=== PATIENT | female | born 1990 | race Caucasian/White ===

== ENCOUNTER 2017-03-25 20:33 | Observation (INO) | payer OTHER ==
[2017-03-25 21:02] VITALS: BP 111/63; PULSE 92
[2017-03-25 21:19] LABS: Amphetamine,Urine NEG. (NEGATIVE); Barbiturate,Urine NEG. (NEGATIVE); Benzodiazepine,Urine NEG. (NEGATIVE); Cocaine,Urine NEG. (NEGATIVE); Methadone,Urine NEG. (NEGATIVE); Opiate,Urine NEG. (NEGATIVE); PCP,Urine NEG. (NEGATIVE); THC,Urine NEG. (NEGATIVE)
[2017-03-25 21:48] LABS: Appearance SLIGHTLY CLOUDY (CLEAR); Specific Gravity 1.015 (1.005-1.025)
[2017-03-25 21:49] LABS: Bacteria FEW /HPF (NEGATIVE); Bilirubin NEGATIVE (NEGATIVE); Blood NEGATIVE Ery/ul (0-5); Epithelial Cells MANY /HPF (FEW); Glucose NEGATIVE (NEGATIVE); Ketones NEGATIVE (NEGATIVE); Leukocyte Esterase 1+ (NEGATIVE); Nitrite NEGATIVE (NEGATIVE); Protein,Urine Dip NEGATIVE (Negative); Urobilinogen NORMAL mg/dL (0-1)
[2017-03-25] MEDS ORDERED: TYLENOL EXTRA STRENGTH 500 MG PO PRN (22:00)
[2017-03-25] MEDS ORDERED: TYLENOL EXTRA STRENGTH 500 MG ONE (22:02)
== END 2017-03-26 00:02 | disposition home or self-care (01) ==
LOC: OB 20:33
PROVIDERS: ADMIT Family Medicine; ATTEND Family Medicine
DX: Z34.83 Encounter for supervision of other normal pregnancy, third trimester (principal)
CPT/HCPCS: 80307; 81000; G0378; A9270-GY

== ENCOUNTER 2017-04-01 17:38 | Emergency (ER) | payer OTHER ==
[2017-04-01] MEDS ORDERED: Zithromax 250 MG TABLET PO ONE (18:52)
[2017-04-01] MEDS ORDERED: Lactated Ringers 1,000 ML IV ONE ×2 (18:52→20:00)
[2017-04-01] MEDS ORDERED: TYLENOL 325 MG PO ONE (18:54)
--- NOTE | 2017-04-01 19:02 | ERPHSYRPT ---
- History of Present Illness Source: patient Timing/Duration: today Severity: moderate Hx Tetanus, Diphtheria Vaccination/Date Given: No Hx Influenza Vaccination/Date Given: No Hx Pneumococcal Vaccination/Date Given: No <HERMELINDA STEVENSON - Last Filed: 04/01/17 19:06> <DEBORAH BAUTISTA - Last Filed: 04/01/17 20:55> - History of Present Illness Time Seen by Provider: 04/01/17 18:47 Physician History: CC: earache hx: 26 y/o patient of Dr Deleon is 39 weeks . She has left earache, now right earache. Low grade fever. Myalgias. Cough. Congestion. Breathing fine. Scheduled for repeat next week. She had CTX last week but none today. No ROM. No vaginal bleeding. Normal urination.Vomiting all day. (HERMELINDA STEVENSON) Allergies/Adverse Reactions: No Known Drug Allergies Allergy (Verified 04/01/17 19:16) Home Medications: Vits W-Ca,Fe,FA(<1Mg) [] 1 each PO DAILY 04/01/17 [History] - Review of Systems Constitutional: Fever, Fatigue, Malaise Eyes: No Symptoms Ears, Nose, & Throat: Ear Pain, No Ear Discharge Respiratory: Cough Abdominal/Gastrointestinal: Nausea, Vomiting, No Abdominal Pain, No Diarrhea Genitourinary Symptoms: , No Dysuria, No Vaginal Bleeding Musculoskeletal: Myalgias, No Back Pain Skin: No Rash Neurological: Headache All Other Systems: Reviewed and Negative <HERMELINDA STEVENSON - Last Filed: 04/01/17 19:06> - Past Medical History Pertinent Past Medical History: Yes Psycho-Social History: Depression - Past Surgical History Past Surgical History: Yes - Social History Smoking Status: Never smoker Exposure to second hand smoke: No Drug Use: none Patient Lives Alone: No <HERMELINDA STEVENSON - Last Filed: 04/01/17 19:06> - Physical Exam General Appearance: alert, obese Eye Exam: PERRL/EOMI Ears, Nose, Throat Exam: normal ENT inspection, dry mucous membranes Neck Exam: normal inspection, non-tender, supple Respiratory Exam: normal breath sounds, other (+ cough) Cardiovascular Exam: regular rate/rhythm, edema (1+ bilateral) Gastrointestinal/Abdomen Exam: soft, No tenderness, No distention Extremity Exam: normal range of motion, No calf tenderness Neurologic Exam: alert, oriented x 3, cooperative, sensation nml, No motor deficits Skin Exam: warm, dry, No rash <HERMELINDA STEVENSON - Last Filed: 04/01/17 19:06> - Nursing Vital Signs Nursing Vital Signs: Initial Vital Signs Pulse Rate 78 04/01/17 19:06 Respiratory Rate 20 04/01/17 19:06 Blood Pressure 147/87 04/01/17 19:06 O2 Sat by Pulse Oximetry 97 04/01/17 19:06 Pain Scale Pain Intensity 10 - Course Nursing assessment & vital signs reviewed: Yes <HERMELINDA STEVENSON - Last Filed: 04/01/17 19:06> Ordered Tests: Active Orders 24 hr Category Date Time Status Clean Catch Urine Specimen STAT Care 04/01/17 18:52 Active Heart Tones-ED STAT Care 04/01/17 18:52 Active Gown/Disrobe Pt STAT Care 04/01/17 18:52 Active IV Insertion STAT Care 04/01/17 18:52 Active CBC W DIFF Stat Lab 04/01/17 20:09 Completed CMP Stat Lab 04/01/17 20:09 Received CULTURE,URINE Stat Lab 04/01/17 19:08 Received UA W/ MICROSCOPIC Stat Lab 04/01/17 19:08 Completed Medication Summary Discontinued Medications Generic Name Dose Route Start Last Admin Trade Name Arianna PRN Reason Stop Dose Admin Acetaminophen 650 mg 04/01/17 18:54 04/01/17 19:28 Tylenol 325 Mg PO 04/01/17 18:55 650 mg STAT ONE Administration Acetaminophen Confirm 04/01/17 19:26 Tylenol 325 Mg Administered 04/01/17 19:27 Dose 650 mg .ROUTE .STK-MED ONE Azithromycin 500 mg 04/01/17 18:52 04/01/17 19:28 Zithromax 250 Mg Tablet PO 04/01/17 18:53 500 mg STAT ONE Administration Azithromycin Confirm 04/01/17 19:26 Zithromax 250 Mg Tablet Administered 04/01/17 19:27 Dose 500 mg .ROUTE .STK-MED ONE Lactated Ringer's 1,000 mls @ 999 mls/hr 04/01/17 18:52 04/01/17 20:02 Lactated Ringers IV 04/01/17 19:52 999 mls/hr .Q1H1M ONE Administration Lactated Ringer's Confirm 04/01/17 20:00 Lactated Ringers Administered 04/01/17 20:01 Dose 1,000 mls @ ud IV .STK-MED ONE Lab/Rad Data: Laboratory Result Diagrams 04/01/17 20:09 Laboratory Results 04/01/17 04/01/17 04/01/17 Range/Units 20:09 19:08 19:08 WBC 11.0 H (4.0-10.5) K/mm3 RBC 3.94 L (4.1-5.4) M/mm3 Hgb 10.4 L (12.0-16.0) gm/dl Hct 33.3 L (35-47) % MCV 84.5 (78-100) fl MCH 26.3 (26-32) pg MCHC 31.2 L (32-36) g/dl RDW 14.3 H (11.5-14.0) % Plt Count 339 (150-450) K/mm3 MPV 10.6 H (6-9.5) fl Gran % 78.1 H (36.0-66.0) % Lymphocytes % 15.3 L (24.0-44.0) % Monocytes % 5.6 (0.0-12.0) % Eosinophils % 0.9 (0.00-5.0) % Basophils % 0.1 (0.0-0.4) % Basophils # 0.01 (0-0.4) Ur Collection Type CLEAN CATCH Urine Color YELLOW (YELLOW) Urine Appearance HAZY (CLEAR) Urine pH 6.0 (5-6) Ur Specific [place] 1.015 (1.005-1.025) Urine Protein TRACE (Negative) Urine Ketones NEGATIVE (NEGATIVE) Urine Blood TRACE NON-HEM (0-5) Jean Claude/ul Urine Nitrite NEGATIVE (NEGATIVE) Urine Bilirubin NEGATIVE (NEGATIVE) Urine Urobilinogen NORMAL (0-1) mg/dL Ur Leukocyte Esterase TRACE (NEGATIVE) Urine Microscopic RBC 5-10 (0-2) /HPF Urine Microscopic WBC 0-2 (0-5) /HPF Ur Epithelial Cells MODERATE (FEW) /HPF Urine Bacteria FEW (NEGATIVE) /HPF Urine Mucus MANY (NEGATIVE) /HPF Urine Culture Reflexed YES (NO) Urine Glucose NEGATIVE (NEGATIVE) mg/dL Influenza Type A Ag NEGATIVE (NEGATIVE) Influenza Type B Ag NEGATIVE (NEGATIVE) RSV (PCR) NEGATIVE (Negative) Specimen Received 04-01-16 <HERMELINDA STEVENSON - Last Filed: 04/01/17 19:06> <DEBORAH BAUTISTA - Last Filed: 04/01/17 20:55> - Progress Progress Note: 04/01/17 19:[address] Bautista for further care and disposition. (HERMELINDA STEVENSON) 04/01/17 20:[address] BAUTISTA @ 2046: PERRL, EOMI, PHARYNX ERYTHEMATOUS, LEFT TM ERYTHEMATOUS OVER SUPERIOR ASPECT, LUNGS CLEAR, NO CARDIAC RUB, ABDOMINAL B.S. NORMAL, GRAVID UTERUS WITH FUNDUS WELL ABOVE THE UMBILICUS, NO ANKLE EDEMA, ALERT & COOPERATIVE. 04/01/17 20:53 FHT = 150. (DEBORAH BAUTISTA) <HERMELINDA STEVENSON - Last Filed: 04/01/17 19:06> - Departure Time of Disposition: 20:55 Departure Disposition: Home Critical Care Time: No <DEBORAH BAUTISTA - Last Filed: 04/01/17 20:55> - Departure Clinical Impression: LOM, PHARYNGITIS Condition: Stable Referrals: BROOKE DELEON MD [Primary Care Provider] - Instructions: Otitis Media (Middle Ear Infection) Additional Instructions: FOLLOW UP WITH PRIVATE DOCTOR TOMORROW. Prescriptions: Guaifenesin/Dextromethorphan [Robitussin Cough-Chest Dm Liq] 10 ml PO Q4H PRN PRN #120 ml PRN Reason: Cough Azithromycin 250 mg [Zithromax 250 MG TABLET] 250 mg PO ZPACK #6 tablet
[2017-04-01 19:22] LABS: Appearance HAZY (CLEAR); Leukocyte Esterase TRACE (NEGATIVE); Nitrite NEGATIVE (NEGATIVE); Protein,Urine Dip TRACE (Negative); Specific Gravity 1.015 (1.005-1.025)
[2017-04-01 19:23] LABS: Bilirubin NEGATIVE (NEGATIVE); Blood TRACE NON-HEM Ery/ul (0-5); Glucose NEGATIVE (NEGATIVE); Ketones NEGATIVE (NEGATIVE); Urobilinogen NORMAL mg/dL (0-1)
[2017-04-01 19:24] LABS: Bacteria FEW /HPF (NEGATIVE); Epithelial Cells MODERATE /HPF (FEW); Mucus MANY /HPF (NEGATIVE); WBC 0-2 /HPF (0-5)
[2017-04-01] MEDS ORDERED: Zithromax 250 MG TABLET ONE (19:26)
[2017-04-01] MEDS ORDERED: TYLENOL 325 MG ONE (19:26)
[2017-04-01 20:13] LABS: BASOPHIL % 0.1 % (0.0-0.4); Basophil (Absolute #) 0.01 (0-0.4); Eosinophil % 0.9 % (0.00-5.0); Granulocyte Absolute (ANC) 8.61 (1.4-6.9); Granulocytes % 78.1 % (36.0-66.0); Hematocrit 33.3 % (35-47); Hemoglobin 10.4 gm/dl (12.0-16.0); Lymphocyte (Absolute #) 1.69 (1.0-4.6); Lymphocytes % 15.3 % (24.0-44.0); Mean Cell Volume 84.5 fl (78-100); Mean Corpuscular Hgb Concent. 31.2 g/dl (32-36); Mean Platelet Volume 10.6 fl (6-9.5); Monocyte (Absolute #) 0.62 (0.0-1.3); Monocytes % 5.6 % (0.0-12.0); Platelet Count 339 K/mm3 (150-450); Red Blood Count 3.94 M/mm3 (4.1-5.4); Red Cell Distribution Width 14.3 % (11.5-14.0)
[2017-04-01 20:14] LABS: Mean Corpuscular Hemoglobin 26.3 pg (26-32)
[2017-04-01 20:35] LABS: INFLUENZA A NEGATIVE (NEGATIVE); INFLUENZA B NEGATIVE (NEGATIVE); RESPIRATORY SYNCTIAL VIRUS NEGATIVE (Negative)
[2017-04-01 20:38] LABS: ALBUMIN 2.5 g/dL (3.4-5.0); ALKALINE PHOSPHATASE 147 U/L (46-116); ANION GAP 14.3 MEQ/L (5-15); BLOOD UREA NITROGEN 6 mg/dL (9-20); CHLORIDE 105 mEq/L (98-107); Calcium 8.9 mg/dL (8.5-10.1); Carbon Dioxide 23.6 mEq/L (21-32); Creatinine 1 0.57 mg/dl (0.55-1.30); EST GLOMERULAR FILTRATION RATE > 60 ML/MIN; Glucose 81 MG/DL (70-110); Potassium 4.2 mEq/L (3.5-5.1); SGOT/AST 14 U/L (15-37); SGPT/ALT 9 U/L (12-78); SODIUM 139 mEq/L (136-145); Total Protein 6.8 gm/dL (6.4-8.2)
[2017-04-01] MEDS ORDERED: Robitussin-Dm Syrup PO ONE (20:49)
[2017-04-01 21:08] VITALS: O2SAT 98
[2017-04-01 21:21] VITALS: BP 135/73; PULSE 78
== END 2017-04-01 21:25 | disposition home or self-care (01) ==
LOC: ED 17:38
DX: H66.92 Otitis media, unspecified, left ear (principal); J02.9 Acute pharyngitis, unspecified; Z33.1 Pregnant state, incidental
CPT/HCPCS: 36000; 36415; 80053; 81000; 85025; 87086; 87631; 96360; 99284; 99285; A9270-GY

== ENCOUNTER 2017-04-03 02:17 | Inpatient (IN) | payer OTHER ==
[2017-04-03] MEDS ORDERED: Lactated Ringers 1,000 ML IV ONE (02:28)
[2017-04-03] MEDS ORDERED: Pepcid 20 MG VIAL IV SCH (02:30)
[2017-04-03] MEDS ORDERED: Reglan 10 MG/2 ML IV SCH (02:30)
[2017-04-03] MEDS ORDERED: Lactated Ringers 1,000 ML IV SCH (02:30)
[2017-04-03 02:57] LABS: Hematocrit 32.4 % (35-47); Hemoglobin 10.4 gm/dl (12.0-16.0); Mean Cell Volume 83.7 fl (78-100); Mean Corpuscular Hgb Concent. 32.1 g/dl (32-36); Mean Platelet Volume 10.5 fl (6-9.5); Platelet Count 346 K/mm3 (150-450); Red Blood Count 3.87 M/mm3 (4.1-5.4); Red Cell Distribution Width 14.3 % (11.5-14.0); White Blood Count 9.5 K/mm3 (4.0-10.5)
[2017-04-03 03:18] LABS: INR 1.04 (0.8-3.0)
[2017-04-03 03:20] LABS: Amphetamine,Urine NEG. (NEGATIVE); Barbiturate,Urine NEG. (NEGATIVE); Benzodiazepine,Urine NEG. (NEGATIVE); Cocaine,Urine NEG. (NEGATIVE); Methadone,Urine NEG. (NEGATIVE); Opiate,Urine NEG. (NEGATIVE); PCP,Urine NEG. (NEGATIVE); THC,Urine NEG. (NEGATIVE)
[2017-04-03 03:21] LABS: PTT 26.3 SECONDS (25.3-37.0)
[2017-04-03 03:30] LABS: Mean Corpuscular Hemoglobin 26.8 pg (26-32)
[2017-04-03 03:54] LABS: ABO TYPING O; Antibody Screen NEGATIVE (NEGATIVE); RH TYPING NEGATIVE
[2017-04-03 03:55] LABS: Appearance SLIGHTLY CLOUDY (CLEAR)
[2017-04-03 04:07] LABS: Leukocyte Esterase 2+ (NEGATIVE); Nitrite NEGATIVE (NEGATIVE); Protein,Urine Dip TRACE (Negative)
[2017-04-03 04:08] LABS: Bacteria FEW /HPF (NEGATIVE); Bilirubin NEGATIVE (NEGATIVE); Blood TRACE NON-HEM Ery/ul (0-5); Epithelial Cells MODERATE /HPF (FEW); Glucose NEGATIVE (NEGATIVE); Ketones SMALL (NEGATIVE); Mucus SLIGHT /HPF (NEGATIVE); Urobilinogen NORMAL mg/dL (0-1)
[2017-04-03] MEDS ORDERED: Cleocin Phosphate IV 600 MG/4 ML ONE (06:16)
[2017-04-03] MEDS ORDERED: HOLD NARCOTIC ANALGESICS AND SEDATIVES X24 HR MC PRN (08:00)
[2017-04-03] MEDS ORDERED: DEMEROL 50 MG IV PRN (08:00)
[2017-04-03] MEDS ORDERED: BENADRYL 50 MG/ML IV PRN (08:00)
[2017-04-03] MEDS ORDERED: Narcan 0.4 MG/ML IV PRN (08:00)
[2017-04-03] MEDS ORDERED: Nubain 10 MG/ML IV PRN (08:00)
[2017-04-03] MEDS ORDERED: CLARITIN 10 MG PO PRN (08:00)
[2017-04-03] MEDS ORDERED: Zofran 4 MG/2 ML VIAL IV PRN (08:00)
[2017-04-03] MEDS ORDERED: MORPHINE SULFATE 2 MG INJ IV PRN (08:00)
[2017-04-03] MEDS ORDERED: PERCOCET TABLET 5/325MG PO PRN (08:00)
[2017-04-03] MEDS ORDERED: DEMEROL 50 MG ONE (08:31)
[2017-04-03] MEDS ORDERED: Dulcolax 10 MG SUPP PR PRN (09:00)
[2017-04-03] MEDS ORDERED: Mylicon 80MG PO PRN (09:00)
[2017-04-03] MEDS ORDERED: Anucort-HC SUPPOSITORY PR PRN (09:00)
[2017-04-03] MEDS ORDERED: LANSINOH 40 GM TOP PRN (09:00)
[2017-04-03] MEDS ORDERED: TYLENOL EXTRA STRENGTH 500 MG PO PRN (09:00)
[2017-04-03] MEDS ORDERED: Adacel Vial IM ONE (09:00)
[2017-04-03] MEDS ORDERED: Ambien 10 MG PO PRN (09:00)
[2017-04-03] MEDS ORDERED: CORTISONE 1% CREAM TP PRN (09:00)
[2017-04-03] MEDS ORDERED: Zofran 4 MG/2 ML VIAL ONE (09:05)
[2017-04-03] MEDS: FERREX 150 PO SCH (10:38)
[2017-04-03] MEDS: THERAGRAN MULTIVITAMIN PO SCH (10:38)
[2017-04-03] MEDS: Colace 100 MG PO SCH ×2 (10:38→21:23)
--- NOTE | 2017-04-03 11:59 | OP ---
SURGERY DATE/TIME: 04/03/2017 0657 PREOPERATIVE DIAGNOSES: 1) History of prior section. 2) Term intrauterine . POSTOPERATIVE DIAGNOSES: 1) History of prior section. 2) Term intrauterine . PROCEDURE: Repeat low transverse section. SURGEON: Juan Deleon M.D. PATTERNMAKER PLASTER: medical coding technician. ESTIMATED BLOOD LOSS: 300 cc. IV FLUIDS: 800 cc of crystalloid. URINE OUTPUT: 50 cc clear straw-colored urine. ANESTHESIA: Spinal by Chandler Blake CRNA. SPECIMEN: None. DESCRIPTION OF PROCEDURE: After informed written consent was obtained, the patient was taken to the operating room. She underwent spinal anesthesia and then was prepped and draped in the usual sterile fashion after a Buckley catheter was anchored. After adequate level of anesthesia was assessed, a low transverse skin incision was made through the prior scar down to the subcutaneous fat to the level of the fascia. The fascia was nicked on both sides of the midline and extended in horizontal fashion using curved Godoy scissors. The superior free edge of the fascia was grasped with Figueroa clamps and the underlying rectus muscles were dissected free. The same was repeated inferiorly. The peritoneal cavity was then opened and extended in horizontal fashion. Bladder flap was created and reflected over the lower uterine segment. A horizontal uterine incision was made by knife and carried down to the level of the amniotic membranes which were carefully artificially ruptured with clear fluid. A viable male was delivered from the vertex presentation with a strong cry immediately upon delivery. The cord was clamped and cut and he was handed off to the awaiting team after oropharynx and nares were bulb suctioned free of fluid. The placenta was removed from the uterine cavity. The uterus was exteriorized. The urine cavity was then wiped with lap sponge. Next, the uterine incision was closed with #1 chromic in a running locked fashion. Good closure and good hemostasis were achieved. Posterior cul-de-sac was wiped free of blood and clot with moist lap sponge. The uterus was then returned to the peritoneal cavity and lateral gutters were wiped free of blood and clot. Again the uterine incision was inspected and noted to be hemostatic. Next, the fascia was closed with 0 Vicryl in a running fashion with good closure and good hemostasis achieved. Subcutaneous fat was irrigated with warm, sterile saline and any areas of bleeding were cauterized with electrocautery. Finally the skin layer was closed with 4-0 undyed Vicryl in running subcuticular fashion. Steri-Strips and occlusive dressing were placed over the incision and the patient was transferred to the recovery in excellent condition.
[2017-04-03] MEDS ORDERED: Astramorph-Pf 5 MG/10 ML IV ONE (13:29)
[2017-04-03] MEDS: Dextrose 5%-Lr IV Solution 1000 ML 1,000 ML IV SCH ×2 (15:53→23:52)
[2017-04-03] MEDS: Zithromax 250 MG TABLET PO SCH (15:55)
[2017-04-03] MEDS ORDERED: Zofran 4 MG/2 ML VIAL IV ONE (16:18)
[2017-04-03] MEDS ORDERED: EPINEPHRINE 1MG/ML AMP IV ONE (16:18)
[2017-04-03] MEDS ORDERED: TORAdol 30 mg Injection IV ONE (16:18)
[2017-04-03] MEDS ORDERED: PHENYLEPHRINE HCL IV ONE (16:18)
[2017-04-03] MEDS ORDERED: Pitocin 10 UNITS/ML IV ONE (16:18)
[2017-04-03] MEDS ORDERED: Naropin 0.5% 30 ML VIAL IJ ONE (16:18)
[2017-04-03 16:55] LABS: ABO TYPING O; ANTIBODY SCREEN NEGATIVE (NEGATIVE); RH TYPING NEGATIVE
[2017-04-04] MEDS: MOTRIN 400 MG PO PRN ×3 (04:27→23:54)
[2017-04-04 06:06] LABS: Hematocrit 28.8 % (35-47); Mean Corpuscular Hemoglobin 26.5 pg (26-32); Mean Corpuscular Hgb Concent. 31.3 g/dl (32-36); Mean Platelet Volume 10.8 fl (6-9.5); Platelet Count 294 K/mm3 (150-450); Red Blood Count 3.39 M/mm3 (4.1-5.4); Red Cell Distribution Width 14.7 % (11.5-14.0); White Blood Count 10.4 K/mm3 (4.0-10.5)
[2017-04-04] MEDS ORDERED: DEMEROL 75 MG IM PRN (08:00)
[2017-04-04] MEDS ORDERED: Phenergan 25 MG INJ IM PRN (08:00)
[2017-04-04] MEDS ORDERED: Rhogam Plus 300 MCG IM ONE (10:00)
[2017-04-04] MEDS ORDERED: NON-FORMULARY ITEM (Prenatal Vits W-Ca,Fe,Fa(<1mg) [Prenatal] 1 EACH) PO SCH (10:00)
[2017-04-04] MEDS: FERREX 150 PO SCH (10:17)
[2017-04-04] MEDS: Colace 100 MG PO SCH ×2 (10:18→21:40)
[2017-04-04] MEDS: THERAGRAN MULTIVITAMIN PO SCH (10:18)
[2017-04-04] MEDS: Zithromax 250 MG TABLET PO SCH (10:21)
[2017-04-04 21:32] VITALS: O2SAT 100
[2017-04-04] MEDS: NORCO 5/325 MG PO PRN (21:40)
[2017-04-05] MEDS: NORCO 5/325 MG PO PRN (08:10)
--- NOTE | 2017-04-05 08:43 | PCM.DS ---
Discharge Summary Date of Admission: 04/03/17 02:17 Admitting Physician: BROOKE PINZON Consults: Consults on Case 04/03/17 02:27 Notify Physician OF ADMISSION 04/03/17 02:28 Notify Anesthesia Provider ROUTINE Primary Care Provider: BROOKE PINZON Allergies Allergies amoxicillin Allergy (Verified 04/03/17 02:58) pt states she has only had problems since being , whenever she has taken it she throws up Hospital Summary - Hospital Course Hospital Course: had repeat c/s at 39 wks, no post-op complications. pain controlled, mild lochia. had URI and was on zpak prior to surgery. has some nonproductive cough - Vitals & Intake/Output Vital Signs: Vital Signs Temperature 97.7 F 04/05/17 02:35 Pulse Rate 80 04/05/17 02:35 Respiratory Rate 18 04/05/17 02:35 Blood Pressure 132/63 04/05/17 02:35 O2 Sat by Pulse Oximetry 100 04/05/17 02:35 Intake & Output: Intake & Output 04/02/17 04/03/17 04/04/17 04/05/17 11:59 11:59 11:59 11:59 Intake Total 3267 Output Total 3050 Balance 217 Weight 124.284 kg - Lab Result Diagrams: 04/04/17 05:30 Micro Results-Entire Visit: Microbiology 04/03/17 08:22 Urine Culture - Preliminary Catherized NO GROWTH TO DATE Discharge Exam General Appearance: no apparent distress, alert Skin Exam: normal color, warm, dry Respiratory Exam: normal breath sounds, lungs clear, No respiratory distress Cardiovascular Exam: regular rate/rhythm, normal heart sounds Gastrointestinal/Abdomen Exam: soft, normal bowel sounds, other (incision c/d/i) Extremity Exam: normal inspection, normal range of motion Final Diagnosis/Problem List - Final Discharge Diagnosis/Problem (1) delivery delivered Current Visit: Yes Status: Acute - Discharge Disposition: Home, Self-Care Condition: Stable Prescriptions: New Docusate Sodium 100 mg [Colace 100 MG] 100 mg PO BID #60 capsule Iron Polysaccharides Complex [Ferrex 150] 150 mg PO DAILY #30 capsule Hydrocodone Bit/Acetaminophen [Magnolia 5-325 Tablet] 1 each PO Q4-6HPRN PRN # 30 tablet MDD 6 PRN Reason: Pain Discontinued Vits W-Ca,Fe,FA(<1Mg) [] 1 each PO DAILY Azithromycin 250 mg [Zithromax 250 MG TABLET] 250 mg PO ZPACK #6 tablet Follow up with: BROOKE PINZON MD [Primary Care Provider] - 1 Week
[2017-04-05] MEDS: MOTRIN 400 MG PO PRN (10:12)
[2017-04-05] MEDS: FERREX 150 PO SCH (10:52)
[2017-04-05] MEDS: THERAGRAN MULTIVITAMIN PO SCH (10:52)
[2017-04-05] MEDS: Colace 100 MG PO SCH (10:53)
[2017-04-05] MEDS: Zithromax 250 MG TABLET PO SCH (10:53)
[2017-04-05] MEDS ORDERED: Astramorph-Pf 5 MG/10 ML IV ONE (13:29)
[2017-04-05 14:32] VITALS: BP 138/68; PULSE 79
== END 2017-04-05 13:30 | disposition home or self-care (01) | DRG 766 ==
LOC: OB 02:17 → MED SURG 04-04 16:12
PROVIDERS: ADMIT Family Medicine; ATTEND Family Medicine
PROC: 10D00Z1 Extraction of Products of Conception, Low, Open Approach (ICD-10-PCS; principal; 2017-04-03)
DX: O34.211 Maternal care for low transverse scar from previous cesarean delivery (principal); Z3A.39 39 weeks gestation of pregnancy; Z37.0 Single live birth
CPT/HCPCS: 01961; 36000; 36415; 62322; 64488; 76937; 76942; 80053; 80307; 81000; 85025; 85027; 85461; 85610; 85730; 86850; 86900; 86901; 87086; 87631; 94799; 96360; 99284; J0171; J1885; J2175; J2274; J2370; J2405; J2590; J2790; J2795; L0625; A9270-GY